=== PATIENT | female | born 1990 ===

== ENCOUNTER 2017-04-17 00:42 | Emergency (ER) | payer OTHER ==
[2017-04-17 00:48] VITALS: O2SAT 100
[2017-04-17 00:52] VITALS: BP 121/82; PULSE 60; RESP 19; TEMP 98.2
[2017-04-17 01:56] LABS: BASO # 0.1 K/uL (0.0-0.2); BASO % 1.2 % (0.0-2.0); EOS # 0.1 K/uL (0.0-0.7); EOS % 2.7 % (0.0-4.0); LYMPH # 2.3 K/uL (1.0-4.3); LYMPH % 44.3 % (20.0-40.0); MEAN CORPUSCULAR HEMOGLOBIN 31.3 pg (27.0-31.0); MEAN CORPUSCULAR HGB CONC 33.3 g/dL (33.0-37.0); MEAN PLATELET VOLUME 9.7 fl (7.2-11.7); MONO # 0.3 K/uL (0.0-0.8); MONO % 6.3 % (0.0-10.0); NEUT # 2.4 K/uL (1.8-7.0); NEUT % 45.5 % (50.0-75.0); NRBC % 0.1 % (0.0-0.0); RBC 4.16 Mil/uL (3.80-5.20); RED CELL DISTRIBUTION WIDTH 15.3 % (11.5-14.5); WHITE BLOOD COUNT 5.2 K/uL (4.8-10.8)
--- NOTE | 2017-04-17 02:01 | ED PDOC ---
HPI: General Adult Time Seen by Provider: 04/17/17 01:19 Chief Complaint (Nursing): Alcohol Ingestion Chief Complaint (Provider): AMS after drinking alcohol and smoking huka History Per: Family, Other (Friend with patient during night ) History/Exam Limitations: other Onset/Duration Of Symptoms: Mins Have you had recent travel within the past 21 days to any of the following countries: [place], [place], [place] or [place]?: No Current Symptoms Are (Timing): Still Present Additional Complaint(s): Pt was out with friend when she became altered. According to friend patient had approx 8 drinks. Pt answering yes and no questions. Reports headache. PT denies drug use. at bedside and reports no medications problems, no medications daily and no allergies. Pt starring at wall. Past Medical History Reviewed: Historical Data, Nursing Documentation, Vital Signs Vital Signs: Last Vital Signs Temp 98.2 F 04/17/17 00:52 Pulse 60 04/17/17 00:52 Resp 19 04/17/17 00:52 BP 121/82 04/17/17 00:52 Pulse Ox 100 04/17/17 02:02 - Medical History PMH: No Chronic Diseases - Surgical History Surgical History: No Surg Hx - Family History Family History: States: No Known Family Hx - Living Arrangements Living Arrangements: With Family - Social History Current smoker - smoking cessation education provided: No - Allergies Allergies/Adverse Reactions: Allergies Allergy/AdvReac Type Severity Reaction Status Date / Time Unobtainable Allergy Verified 04/17/17 00:43 Review of Systems ROS Statement: Except As Marked, All Systems Reviewed And Found Negative Constitutional: Negative for: Fever, Chills Neurological: Positive for: Altered Mental Status, Headache Physical Exam - Reviewed Nursing Documentation Reviewed: Yes Vital Signs Reviewed: Yes - Physical Exam Appears: Positive for: Well, Non-toxic, No Acute Distress Head Exam: Positive for: ATRAUMATIC, NORMAL INSPECTION, NORMOCEPHALIC Skin: Positive for: Normal Color, Warm, DRY Eye Exam: Positive for: Normal appearance, EOMI, PERRL ENT: Positive for: Normal ENT Inspection Neck: Positive for: Normal, Painless ROM Cardiovascular/Chest: Positive for: Regular Rate, Rhythm Respiratory: Positive for: CNT, Normal Breath Sounds Gastrointestinal/Abdominal: Positive for: Normal Exam, Bowel Sounds, Soft Back: Positive for: Normal Inspection Extremity: Positive for: Normal ROM Neurologic/Psych: Positive for: Alert, Oriented - Laboratory Results Result Diagrams: 04/17/17 01:53 04/17/17 01:53 - ECG O2 Sat by Pulse Oximetry: 100 Medical Decision Making Medical Decision Making: Head CT normal. Pt up and out of bed with steady gait. Disposition - Clinical Impression Clinical Impression: Alcohol abuse with intoxication - Patient ED Disposition Is Patient to be Admitted: No - Disposition Disposition: Routine/Home Disposition Time: 04:50 Condition: STABLE Instructions: Abuse of Alcohol (ED) Forms: [employer] (Portuguese)
[2017-04-17 02:07] LABS: ALB/GLOB RATIO 1.1 (1.0-2.1); ALBUMIN 4.2 g/dL (3.5-5.0); ALT/SGPT 25 U/L (9-52); AST/SGOT 25 U/L (14-36); BLOOD UREA NITROGEN 10 mg/dl (7-17); GFR AFRICAN-AMERICAN > 60; GFR NON-AFRICAN AMERICAN > 60
[2017-04-17 02:17] LABS: INR 1.1 (0.9-1.2); PARTIAL THROMBOPLASTIN TIME 27.5 Seconds (25.6-37.1); PROTHROMBIN TIME 11.8 Seconds (9.8-13.1)
--- NOTE | 2017-04-17 03:30 | CT ---
EXAM: CT Head Without Intravenous Contrast CLINICAL HISTORY: 26 years old, female; Pain; Headache; Additional info: Headache, AMS TECHNIQUE: Axial computed tomography images of the head/brain without intravenous contrast. All CT scans at this facility use one or more dose reduction techniques, viz.: automated exposure control; ma/kV adjustment per patient size (including targeted exams where dose is matched to indication; i.e. head); or iterative reconstruction technique. Coronal and sagittal reformatted images were created and reviewed. COMPARISON: No relevant prior studies available. FINDINGS: Brain: No intracranial hemorrhage. No mass. No definite edema. Ventricles: No hydrocephalus. Bones/joints: No acute fracture. Soft tissues: Unremarkable. Sinuses: Mild mucosal thickening of RIGHT sphenoid sinus. Scattered minimal mucosal thickening of ethmoid sinuses. Mastoid air cells: No mastoid effusion. Orbits: Unremarkable as visualized. IMPRESSION: 1. No definite acute intracranial abnormality. 2. Incidental/non-acute findings are described above.
[2017-04-17 05:14] LABS: BARBITURATES, UR NEGATIVE (NEGATIVE); BENZODIAZEPINES, UR NEGATIVE (NEGATIVE); OPIATES, UR NEGATIVE (NEGATIVE); PHENCYCLIDINE, UR NEGATIVE (NEGATIVE)
== END 2017-04-17 05:00 | disposition home or self-care (01) ==
LOC: H.ER 00:42
DX: F10.129 Alcohol abuse with intoxication, unspecified (principal); R51 Headache

== ENCOUNTER 2017-06-07 15:24 | Emergency (ER) | payer MEDICAID, OTHER ==
[2017-06-07 15:24] VITALS: BMI 29.7
[2017-06-07 15:43] VITALS: BP 129/95; PULSE 83; RESP 16; TEMP 98.2; O2SAT 100
[2017-06-07] MEDS ORDERED: Alum-Mag Hydrox-Simethicone Susp (30 mL) PO ONE (16:08)
[2017-06-07] MEDS ORDERED: Sodium Chloride 0.9% 1,000 ML IV STA (16:08)
[2017-06-07] MEDS ORDERED: Alum-Mag Hydrox-Simethicone Susp (30 mL) ONE (16:19)
--- NOTE | 2017-06-07 16:20 | ED PDOC ---
HPI: Abdomen Time Seen by Provider: 06/07/17 15:44 Chief Complaint (Nursing): Abdominal Pain Chief Complaint (Provider): Abdominal Pain History Per: Patient History/Exam Limitations: no limitations Onset/Duration Of Symptoms: Days (x4) Outside of [place] travel?: No Current Symptoms Are (Timing): Still Present Location Of Pain/Discomfort: Epigastric Quality Of Discomfort: "Pain" Last Bowel Movement: Today Additional Complaint(s): 26 y/o female with a history of gastritis presents to the ED with abdominal pain. Patient states it has been a constant epigastric pain for 4 days that is not radiating. She first visited [facility] 2 days ago where they performed a CT and blood work diagnosing her with an ulcer sent home with Pepcid medication. Patient continued to feel discomfort and returned to [facility] yesterday where she was sent home with a laxative. She admits to vomiting prior to arrival with possible blood but denies any diarrhea, bloody stool, fever, CP, or SOB. PMD: Dr. Karthikeyan Yee MD. Past Medical History Reviewed: Historical Data, Nursing Documentation, Vital Signs Vital Signs: Last Vital Signs Temp 98.2 F 06/07/17 15:41 Pulse 83 06/07/17 15:41 Resp 16 06/07/17 15:41 BP 129/95 H 06/07/17 15:41 Pulse Ox 100 06/07/17 18:28 - Medical History PMH: Gastritis - Surgical History Surgical History: Tonsillectomy - Family History Family History: States: Unknown Family Hx - Social History Current smoker - smoking cessation education provided: No Ex-Smoker (has not smoked in the last 12 months): No Alcohol: Social Drugs: Denies - Immunization History Hx Tetanus Toxoid Vaccination: No Hx Influenza Vaccination: No Hx Pneumococcal Vaccination: No - Home Medications Home Medications: Ambulatory Orders Medication Instructions Recorded Famotidine [Pepcid] 20 mg PO BID #30 tab 06/05/17 Sucralfate [Carafate] 1 gm PO BID #20 tab 06/05/17 Esomeprazole Magnesium [Nexium] 40 mg PO DAILY #30 capsule. 06/07/17 traMADol [Ultram] 50 mg PO TID PRN #15 tab 06/07/17 - Allergies Allergies/Adverse Reactions: Allergies Allergy/AdvReac Type Severity Reaction Status Date / Time No Known Allergies Allergy Verified 06/07/17 15:41 Review of Systems ROS Statement: Except As Marked, All Systems Reviewed And Found Negative Constitutional: Negative for: Fever Cardiovascular: Negative for: Chest Pain Respiratory: Negative for: Shortness of Breath Gastrointestinal: Positive for: Vomiting (x1 prior to arrival), Abdominal Pain ( epigastric). Negative for: Nausea, Diarrhea, Hematochezia Physical Exam - Reviewed Nursing Documentation Reviewed: Yes Vital Signs Reviewed: Yes - Physical Exam Appears: Positive for: Non-toxic, No Acute Distress Head Exam: Positive for: ATRAUMATIC, NORMAL INSPECTION, NORMOCEPHALIC Skin: Positive for: Normal Color, Warm, DRY Eye Exam: Positive for: EOMI, Normal appearance, PERRL ENT: Positive for: Normal ENT Inspection Neck: Positive for: Normal, Painless ROM, Supple Cardiovascular/Chest: Positive for: Regular Rate, Rhythm. Negative for: Murmur Respiratory: Positive for: Normal Breath Sounds. Negative for: Respiratory Distress Gastrointestinal/Abdominal: Positive for: Soft, Tenderness (epigastric). Negative for: Distended Back: Positive for: Normal Inspection. Negative for: L CVA Tenderness, R CVA Tenderness, Vertebral Tenderness Extremity: Positive for: Normal ROM. Negative for: Pedal Edema, Deformity Neurologic/Psych: Positive for: Alert, Oriented (x3). Negative for: Motor/ Sensory Deficits - Laboratory Results Result Diagrams: 06/07/17 16:37 06/07/17 16:37 - ECG O2 Sat by Pulse Oximetry: 100 (RA) Pulse Ox Interpretation: Normal - Progress Re-evaluation Time: 06:00 Condition: Re-examined, Improved Medical Decision Making Medical Decision Making: Time: 15:41 Initial Impression: Abdominal Pain Differential Diagnosis: Gastritis, peptic ulcer, pancreatitis, cholecystitis, other conditions but not listed Initial Plan: * CMP * Lipase Test * UDip * UPregnancy * CBC * Maalox Plus 30 ml PO * Lidocaine 15 ml PO * IV Fluids * Zofran 8 mg PO * Abdominal Ultrasound Ultrasound Report FINDINGS: LIVER: Measures 14.8 cm in length. Normal echogenicity of the liver parenchyma. No mass. No intrahepatic bile duct dilatation. GALLBLADDER: There are no gallstones, wall thickening or pericholecystic fluid. The sonographic Howard's sign is negative. COMMON BILE DUCT: Measures 2.7 mm. No stones. No dilatation. PANCREAS: Unremarkable as visualized. No mass. No ductal dilatation. RIGHT KIDNEY: Measures 10.3 cm in length. Normal echogenicity. No calculus, mass, or hydronephrosis. AORTA: No aneurysmal dilatation. IVC: Unremarkable. OTHER FINDINGS: None . IMPRESSION: No cholelithiasis or biliary dilatation. CT Imaging completed on 06/05/2017 at [facility] FINDINGS: LOWER THORAX: Unremarkable. LIVER: Unremarkable. No gross lesion or ductal dilatation. GALLBLADDER AND BILE DUCTS: Unremarkable. PANCREAS: Unremarkable. No gross lesion or ductal dilatation. SPLEEN: Unremarkable. ADRENALS: Unremarkable. No mass. KIDNEYS AND URETERS: Unremarkable. No hydronephrosis. No solid mass. VASCULATURE: Unremarkable. No aortic aneurysm. BOWEL: Unremarkable. No obstruction. No gross mural thickening. Under distended and or mildly thickened rectum, likely reactive. APPENDIX: Unremarkable. Normal appendix. PERITONEUM: Unremarkable. No free fluid. No free air. LYMPH NODES: Unremarkable. No enlarged lymph nodes. BLADDER: Urinary bladder is mildly distended. REPRODUCTIVE: Intrauterine device in the uterus. Recently ruptured left ovarian cyst or follicle. BONES: No acute fracture. OTHER FINDINGS: None. IMPRESSION: Recently ruptured left ovarian cyst or follicle. Urinary bladder is mildly distended. Under distended and or mildly thickened rectum, likely reactive. Clinical correlation. These findings were preliminarily reported at 9:26 p.m. on 06/05/[address] Jad Alejandro from [facility]. Scribe Attestation: Documented by Lon Gallardo acting as a scribe for Dr. Jatinder Tavarez MD. MD Aguilar Attestation: All medical record entries made by the Scribe were at my direction and personally dictated by me. I have reviewed the chart and agree that the record accurately reflects my personal performance of the history, physical exam, medical decision making, and the department course for this patient. I have also personally directed, reviewed, and agree with the discharge instructions and disposition. Disposition - Clinical Impression Clinical Impression: Abdominal pain - Patient ED Disposition Is Patient to be Admitted: No Doctor Will See Patient In The: Office Counseled Patient/Family Regarding: Studies Performed, Diagnosis - Disposition Referrals: [facility] [Outside] Pieter Vasquez MD [Medical Doctor] - Disposition: Routine/Home Disposition Time: 18:30 Condition: GOOD Additional Instructions: Take your medications as instructed. Follow up with your PCP in 2-3 days. Return for worsening. Prescriptions: Esomeprazole Magnesium [Nexium] 40 mg PO DAILY #30 capsule. traMADol [Ultram] 50 mg PO TID PRN #15 tab PRN Reason: Pain, Severe (8-10) Instructions: Stomach Ache and Stomach Upset Forms: [employer] ([employer]), [facility] ED School/Work Excuse Print Language: DUTCH
[2017-06-07 16:45] LABS: BASO % 0.8 % (0.0-2.0); EOS # 0.1 K/uL (0.0-0.7); EOS % 1.4 % (0.0-4.0); HEMOGLOBIN 13.9 g/dL (12.0-16.0); LYMPH # 1.2 K/uL (1.0-4.3); LYMPH % 26.2 % (20.0-40.0); MEAN CELL VOLUME 93.9 fl (81.0-99.0); MEAN CORPUSCULAR HEMOGLOBIN 31.7 pg (27.0-31.0); MEAN CORPUSCULAR HGB CONC 33.8 g/dL (33.0-37.0); MEAN PLATELET VOLUME 9.6 fl (7.2-11.7); MONO # 0.3 K/uL (0.0-0.8); MONO % 7.2 % (0.0-10.0); NEUT # 2.9 K/uL (1.8-7.0); NEUT % 64.4 % (50.0-75.0); NRBC % 0.1 % (0.0-0.0); RBC 4.38 Mil/uL (3.80-5.20); RED CELL DISTRIBUTION WIDTH 14.7 % (11.5-14.5); WHITE BLOOD COUNT 4.6 K/uL (4.8-10.8)
[2017-06-07 16:59] LABS: ALB/GLOB RATIO 1.1 (1.0-2.1); ALBUMIN 4.6 g/dL (3.5-5.0); ALT/SGPT 25 U/L (9-52); AST/SGOT 27 U/L (14-36); BLOOD UREA NITROGEN 12 mg/dl (7-17); CALCIUM 9.6 mg/dL (8.4-10.2); GFR AFRICAN-AMERICAN > 60; GFR NON-AFRICAN AMERICAN > 60; LIPASE 89 U/L (23-300)
--- NOTE | 2017-06-07 17:28 | US ---
HISTORY: Epigastric and right upper quadrant pain COMPARISON: None. TECHNIQUE: Grayscale imaging was performed. FINDINGS: LIVER: Measures 14.8 cm in length. Normal echogenicity of the liver parenchyma. No mass. No intrahepatic bile duct dilatation. GALLBLADDER: There are no gallstones, wall thickening or pericholecystic fluid. The sonographic Howard's sign is negative. COMMON BILE DUCT: Measures 2.7 mm. No stones. No dilatation. PANCREAS: Unremarkable as visualized. No mass. No ductal dilatation. RIGHT KIDNEY: Measures 10.3 cm in length. Normal echogenicity. No calculus, mass, or hydronephrosis. AORTA: No aneurysmal dilatation. IVC: Unremarkable. OTHER FINDINGS: None . IMPRESSION: No cholelithiasis or biliary dilatation.
[2017-06-07] MEDS ORDERED: Potassium Chloride 20 mEq ER Tab PO ONE (18:09)
[2017-06-07] MEDS ORDERED: Piperacillin/Tazobact 3.375 gm Inj IVPB ONE (18:09)
[2017-06-07] MEDS ORDERED: Tmp-Smz 800 mg-160 mg DS Tab ONE (18:10)
[2017-06-07] MEDS ORDERED: Oxycodone/Acetaminophen 5/325 mg Tab PO ONE (18:18)
[2017-06-07] MEDS ORDERED: Oxycodone/Acetaminophen 5/325 mg Tab ONE (18:59)
== END 2017-06-07 19:00 | disposition home or self-care (01) ==
LOC: H.ER 15:24
DX: R10.13 Epigastric pain (principal); Z87.891 Personal history of nicotine dependence
CPT/HCPCS: 76705; 80053; 83690; 85025; 96360; 99284; J7040

== ENCOUNTER 2017-06-29 12:52 | Day surgery (SDC) | payer OTHER ==
[2017-06-29] MEDS ORDERED: Lactated Ringer's 500 ML IV ONE (13:14)
[2017-06-29 13:31] VITALS: O2SAT 100
[2017-06-29] MEDS ORDERED: Propofol 10 mg/ml Inj (20 ML) ONE (13:53)
[2017-06-29 14:28] VITALS: BP 101/78; PULSE 54; RESP 19; TEMP 97.7
== END 2017-06-29 14:30 | disposition home or self-care (01) ==
LOC: H.ENDO 12:52
PROVIDERS: ATTEND Internal Medicine Gastroenterology
DX: R10.13 Epigastric pain (principal); K31.89 Other diseases of stomach and duodenum; K29.50 Unspecified chronic gastritis without bleeding; B96.81 Helicobacter pylori [H. pylori] as the cause of diseases classified elsewhere
CPT/HCPCS: 43239; 88305; J2704; J3010; J7120